=== PATIENT | female | born 1955 | race Caucasian/White ===

== ENCOUNTER 2018-01-21 21:00 | Emergency (ER) | payer OTHER ==
--- OUTSIDE RECORDS SUMMARY | 2018-01-21 21:02 | XMS REPORT | Continuity of Care Document ---
:1955 Author Organization Interface Problems Problem Status Onset Classification Date Comments Source Date Reported Polyneuropathy Active Problem 01/14/2018 [facility] Obstructive sleep Active Problem 01/14/2018 [facility] apnea (pediatric) [facility] Dependence on Active Problem 01/14/2018 [facility] other enabling [facility] Group machines and devices Chronic fatigue Active Diagnosis 01/14/2018 [facility] Anxiety Active Problem 01/14/2018 [facility] Restless leg Active Problem 01/14/2018 [facility] syndrome [facility] Group Irritable bowel Active Problem 01/14/2018 [facility] syndrome, [facility] unspecified type GERD without Active Diagnosis 01/14/2018 [facility] esophagitis [facility] Varicose vein of Active Diagnosis 10/13/2017 [facility] leg [facility] Skin lesion of Active Diagnosis 10/13[facility]2017 [facility] Closed fracture Active Diagnosis 11/30/2017 [facility] of right hand [facility] with routine healing, subsequent encounter Influenza A Active Diagnosis 10/30/2017 [facility] Herpes labialis Active Diagnosis 10/30/2017 [facility] Status post Active Diagnosis 01/14/2018 [facility] surgery [facility] Medications Medication Details Route Status Patient Ordering Order Source Instructions Provider Date Sertaline HCL 1 tab(s) orally Active 100mg orally LEONARD 12/24/ [facility] Daily 2018 [facility] dexlansoprazole 1 cap(s) orally Active 30 mg orally LEONARD 07/05/ [facility] once a day 2017 [facility] Group baclofen 1 tab(s) orally Active 10 mg orally 3 LEONARD 06/10/ [facility] times a day 2017 [facility] Group valacyclovir 1 tab(s) orally Active 1 g orally LEONARD 04/04/ [facility] every 12 hours 2016 [facility] Group Requip 4 tab(s) orally Active 0.25 mg orally LEONARD 03/29/ [facility] Once at night 2016 [facility] Group buspirone 1 tab(s) orally Active 10 mg orally LEONARD 03/29/ [facility] one time at 2017 [facility] Group night Zyrtec 1 tab(s) orally Active 10 mg orally LEONARD [facility] once a day [facility] Group cyclobenzaprine 1 tab(s) orally Active 5 mg orally LEONARD [facility] prn [facility] Group ondansetron 1 tab(s) orally Active 4 mg orally LEONARD [facility] every 8 hours [facility] Group Lyrica 1 cap(s) orally Active 100 mg orally LEONARD [facility] 2 times a day [facility] Group lubiprostone 1 cap(s) orally Active 8 mcg orally 2 LEONARD [facility] times a day [facility] Group diclofenac 1 martina applied Active 3% applied LEONARD [facility] topical topically topically prn Med Group ropinirole 1 tab(s) orally Active 0.25 mg orally LEONARD [facility] 3 times a day [facility] Group pantoprazole 1 tab(s) orally Active 40 mg orally LEONARD [facility] once a day [facility] Group Ventolin HFA 2 puff(s) inhaled Active 90 mcg/inh LEONARD [facility] inhaled 4 [facility] Group times a day fluticasone 1 puff(s) inhaled Active 50 mcg inhaled LEONARD [facility] 2 times a day [facility] Group pregabalin 1 cap(s) orally Active 100 mg orally LEONARD [facility] 2 times a day [facility] Group Tamiflu 1 cap(s) orally Active 75 mg orally 2 LEONARD [facility] times a day [facility] Group Glaxosmithkline as po Active 0.25mg po 4 LEONARD [facility] directed tabs at night Med Group Bromfed DM 5 mL orally Active 2 mg-10 mg-30 LEONARD [facility] mg/5 mL orally Med Group 4 times a day baclofen 1 tab(s) orally Active 10 mg orally 3 LEONARD [facility] times a day [facility] Group rabeprazole 1 tab(s) orally Active 20 mg orally LEONARD [facility] once a day [facility] Group Allergies, Adverse Reactions, Alerts Substance Category Reaction Severity Reaction Status Date Comments Source type Reported tizanidine Adverse Info Not Adverse Active [facility] Reaction Available Reaction 8 [facility] Group midazolam Adverse hives Adverse Active [facility] Reaction Reaction 8 [facility] Group sulfa Adverse rash Adverse Active [facility] Reaction Reaction 8 [facility] Group penicillin Adverse anaphylaxis Adverse Active [facility] Reaction Reaction 8 [facility] Group Immunizations Immunization Date Given Site Status Last Updated Comments Source Results Order Results Value Reference Date Interpretation Comments Source Name Range Vital Signs Vital Sign Value Date Comments Source Temperature Oral (F) 97.3 F 11/07/2017 [facility] Weight 179 11/07/2017 [facility] Height 67 11/07/2017 [facility] Respitory Rate 16 11/07/2017 [facility] Diastolic (mm Hg) 80 11/07/2017 [facility] Systolic (mm Hg) 126 11/07/2017 [facility] Temperature Oral (F) 97.7 F 08/17/2017 [facility] Weight 192.4 08/17/2017 [facility] Height 67 08/17/2017 [facility] Respitory Rate 16 08/17/2017 [facility] Diastolic (mm Hg) 80 08/17/2017 [facility] Systolic (mm Hg) 128 08/17/2017 [facility] Temperature Oral (F) 97.0 F 07/05/2017 [facility] Weight 194 07/05/2017 [facility] Height 67 07/05/2017 [facility] Respitory Rate 16 07/05/2017 [facility] Diastolic (mm Hg) 78 07/05/2017 [facility] Systolic (mm Hg) 124 07/05/2017 [facility] Temperature Oral (F) 97.8 F 04/04/2017 [facility] Weight 200.3 04/04/2017 [facility] Height 67 04/04/2017 [facility] Respitory Rate 16 04/04/2017 [facility] Diastolic (mm Hg) 76 04/04/2017 [facility] Systolic (mm Hg) 122 04/04/2017 [facility] Encounters Location Location Encounter Encounter Reason Attending ADM DC Status Source Details Type Number For Provider Date Date Visit Procedures Procedure Code Date Perfomer Comments Source
--- OUTSIDE RECORDS SUMMARY | 2018-01-21 21:03 | XMS REPORT ---
:1955 Author Organization eClinicalWorks Care Team Providers Name Role Phone WALLACE LEONARD Provider Role Unavailable Allergies, Adverse Reactions, Alerts Substance Reaction Event Type tizanidine Info Not Available Drug Allergy midazolam hives Drug Allergy sulfa rash Non Drug Allergy penicillin anaphylaxis Non Drug Allergy Problems Problem Type Condition Code Onset Dates Condition Status Assessment Influenza A J10.1 Active Assessment Herpes labialis B00.1 Active Problem Dependence on other enabling Z99.89 Active machines and devices Problem Irritable bowel syndrome, K58.9 Active unspecified type Problem Obstructive sleep apnea (adult) G47.33 Active (pediatric) Problem Restless leg syndrome G25.81 Active Problem Polyneuropathy G62.9 Active Problem GERD without esophagitis K21.9 Active Problem Anxiety F41.9 Active Medications Medication Code Code Instructions Start End Status Dosage System Date Date diclofenac topical [facility] 44185521095 3% applied Active 1 martina topically 2 times a day ropinirole [facility] 88137167508 0.25 mg orally Active 1 tab(s) 3 times a day lubiprostone [facility] 63149562095 8 mcg orally 2 Active 1 cap(s) times a day Zyrtec [facility] 57551461491 10 mg orally Active 1 tab(s) once a day pantoprazole [facility] 23075242008 40 mg orally Active 1 tab(s) once a day pregabalin [facility] 72368433483 100 mg orally 2 Active 1 cap(s) times a day Tamiflu [place] 66405884630 75 mg orally 2 Active 1 cap(s) times a day Glaxosmithkline [place] 0 0.25mg po 4 Active as tabs at night directed fluticasone [facility] 22662708223 50 mcg inhaled Active 1 puff(s) 2 times a day Bromfed DM ND 25688817317 2 mg-10 mg-30 Active 5 mL mg/5 mL orally 4 times a day Requip ND 21732044796 0.25 mg orally Dec 14, Active 4 tab(s) Once at night 2016 ondansetron [facility] 14440815534 4 mg orally Active 1 tab(s) every 8 hours cyclobenzaprine [facility] 52585607228 5 mg orally 3 Active 1 tab(s) times a day baclofen [facility] 99213922140 10 mg orally 3 Active 1 tab(s) times a day buspirone [facility] 15041219510 10 mg orally Mar 29, Active 1 tab(s) one time at 2016 night valacyclovir [facility] 64615321392 1 g orally Apr 04, Active 1 tab(s) every 12 hours 2016 Lyrica [facility] 54108318247 100 mg orally 2 Active 1 cap(s) times a day Ventolin HFA [facility] 35468852279 90 mcg/inh Active 2 puff(s) inhaled 4 times a day Sertaline HCL [facility] 75704865948 100mg orally Sept Active 1 tab(s) Daily 2017 Vital Signs Date/Time: Apr 04, 2017 Temperature 97.8 F Weight 200.3 lbs Height 67 in Respiratory Rate 16 /min Pulse 78 /min Blood Pressure Diastolic 76 mm Hg Blood Pressure Systolic 122 mm Hg BMI 31.37 Index Oximetry 98 % Results No Known Results Summary Purpose eClinicalWorks Submission
--- OUTSIDE RECORDS SUMMARY | 2018-01-21 21:03 | XMS REPORT ---
:1955 Author Organization eClinicalWorks Care Team Providers Name Role Phone JENNIFER LOPEZ Provider Role Unavailable Allergies, Adverse Reactions, Alerts Substance Reaction Event Type tizanidine Info Not Available Drug Allergy midazolam hives Drug Allergy sulfa rash Non Drug Allergy penicillin anaphylaxis Non Drug Allergy Problems Problem Type Condition Code Onset Dates Condition Status Problem Polyneuropathy G62.9 Active Assessment Closed fracture of right hand with S62.91XD Active routine healing, subsequent encounter Problem Obstructive sleep apnea (adult) G47.33 Active (pediatric) Problem Dependence on other enabling Z99.89 Active machines and devices Problem Chronic fatigue R53.82 Active Problem Anxiety F41.9 Active Problem Restless leg syndrome G25.81 Active Problem Irritable bowel syndrome, K58.9 Active unspecified type Problem GERD without esophagitis K21.9 Active Medications Medication Code Code Instructions Start End Status Dosage System Date Date Requip [facility] 06208078587 0.25 mg orally Mar 29, Active 4 tab(s) Once at night 2016 lubiprostone [facility] 48063346604 8 mcg orally 2 Active 1 cap(s) times a day Sertaline HCL [facility] 16695279697 100mg orally Sept Active 1 tab(s) Daily 2017 ondansetron [facility] 26113935279 4 mg orally Active 1 tab(s) every 8 hours cyclobenzaprine [facility] 10069988250 5 mg orally prn Active 1 tab(s) Lyrica [facility] 94629488329 100 mg orally 2 Active 1 cap(s) times a day Ventolin HFA ND 30145472613 90 mcg/inh Active 2 puff(s) inhaled 4 times a day fluticasone ND 71300963406 50 mcg inhaled Active 1 puff(s) 2 times a day Zyrtec [facility] 09978952369 10 mg orally Active 1 tab(s) once a day dexlansoprazole [facility] 60753066727 30 mg orally March Active 1 cap(s) once a day 2017 diclofenac topical [facility] 94825792384 3% applied Active 1 martina topically prn ropinirole [facility] 50664911234 0.25 mg orally Active 1 tab(s) 3 times a day Vital Signs Date/Time: August 17, 2017 Temperature 97.7 F Weight 192.4 lbs Height 67 in Respiratory Rate 16 /min Pulse 73 /min Blood Pressure Diastolic 80 mm Hg Blood Pressure Systolic 128 mm Hg BMI 30.13 Index Oximetry 97 % Results No Known Results Summary Purpose eClinicalWorks Submission
--- OUTSIDE RECORDS SUMMARY | 2018-01-21 21:03 | XMS REPORT ---
:1955 Author Organization eClinicalWorks Care Team Providers Name Role Phone LEONARD, WALLACE Provider Role Unavailable Allergies, Adverse Reactions, Alerts Substance Reaction Event Type tizanidine Info Not Available Drug Allergy midazolam hives Drug Allergy penicillin anaphylaxis Non Drug Allergy sulfa rash Non Drug Allergy Problems Problem Type Condition Code Onset Dates Condition Status Assessment GERD without esophagitis K21.9 Active Problem Polyneuropathy G62.9 Active Assessment Chronic fatigue R53.82 Active Assessment Status post surgery Z98.890 Active Problem Obstructive sleep apnea (adult) G47.33 Active (pediatric) Problem Dependence on other enabling Z99.89 Active machines and devices Problem Chronic fatigue R53.82 Active Problem Anxiety F41.9 Active Problem Restless leg syndrome G25.81 Active Problem Irritable bowel syndrome, K58.9 Active unspecified type Problem GERD without esophagitis K21.9 Active Medications Medication Code Code Instructions Start End Status Dosage System Date Date Zyrtec [facility] 07148212617 10 mg orally Active 1 tab(s) once a day Requip ND 89760565496 0.25 mg orally Mar 29, Active 4 tab(s) Once at night 2016 ropinirole [facility] 73172742464 0.25 mg orally Active 1 tab(s) 3 times a day lubiprostone [facility] 59786877959 8 mcg orally 2 Active 1 cap(s) times a day dexlansoprazole [facility] 25576038064 30 mg orally June Active 1 cap(s) once a day 2017 Sertaline HCL ND 14119717247 100mg orally Sept Active 1 tab(s) Daily 2017 ondansetron [facility] 85518418432 4 mg orally Active 1 tab(s) every 8 hours diclofenac topical [facility] 38588448320 3% applied Active 1 martina topically prn cyclobenzaprine [facility] 90905763945 5 mg orally prn Active 1 tab(s) Ventolin HFA [facility] 30965720717 90 mcg/inh Active 2 puff(s) inhaled 4 times a day fluticasone [facility] 17344788043 50 mcg inhaled Active 1 puff(s) 2 times a day rabeprazole [facility] 43144068839 20 mg orally Active 1 tab(s) once a day Lyrica [facility] 26051242185 100 mg orally 2 Active 1 cap(s) times a day Vital Signs Date/Time: November 07, 2017 Temperature 97.3 F Weight 179 lbs Height 67 in Respiratory Rate 16 /min Pulse 82 /min Blood Pressure Diastolic 80 mm Hg Blood Pressure Systolic 126 mm Hg BMI 28.03 Index Oximetry 98 % Results No Known Results Summary Purpose eClinicalWorks Submission
--- OUTSIDE RECORDS SUMMARY | 2018-01-21 21:03 | XMS REPORT ---
:1955 Author [facility] Address [address] [place] [address] Care Team Providers Name Role Phone MIGUELITO SHIN Unavailable Unavailable Problems This patient has no known problems. Allergies, Adverse Reactions, Alerts This patient has no known allergies or adverse reactions. Medications This patient has no known medications. Results Test Description Test Time Test Comments Text Results Atomic Results Result Comments CT ABDOMEN/PELVIS 2017-07-14 NPO 4 hours. Procedures: CT ABDOMEN/PELVIS W/ O W/O CONTRAST 16:53:39 Do not CONTRASTExam Date: 07/14/2017 3:01 withhold meds PMOrdering Physician: MIGUELITO SHETTYlinical Indication: epigastric pain - post gastric bypass - use gastric bypassprotocolComparison: None available.TECHNIQUE: Spiral multislice scanning was obtained from the lung bases throughthe bony pelvis with enteric contrast only. 2-D reconstructions were obtainedaccording to our usual protocol.This exam was performed according to the our departmental dose-optimizationprogram which includes automated exposure control, adjustment of the mA and/orkV according to patient size and/or use of iterative reconstruction techniques.Findings:THORAX:Lung bases: No significant abnormality of the lung bases.Heart: No significant abnormality of the visualized cardiac or mediastinalstructures.UPPER ABDOMEN:Liver: Normal.Gallbladder: Limited evaluation is without gross abnormality.Pancreas: Normal.Spleen: Normal.Adrenals: 2.4 cm lipid rich left adrenal adenoma with an attenuation of -10Hounsfield units. This is consistent with a benign finding. The right adrenalgland is within normal limits.URINARY:Kidneys: The kidneys have a normal unenhanced CT appearance. Small simple renalcyst is present within the right lower pleural. No hydronephrosis ornephrolithiasis.Ureters: The ureters are of normal course and caliber.Urinary bladder: No significant abnormality of the urinary bladder.REPRODUCTIVE:Organs: Postsurgical changes status post hysterectomy. No significant freefluid in the pelvis.Free fluid: None.Incidental pelvic phleboliths are noted.GASTROINTESTINAL:Large bowel: Diverticulosis without CT evidence of diverticulitis.Appendix: The appendix is not clearly demonstrated on this exam.Small bowel: Enteric contrast opacifies normal caliber loops of small bowel. Noevidence of obstruction.Stomach: Postsurgical change status post bariatric surgery with gastric bypass.Enteric contrast traverses from the distal esophagus and proximal stomach pouchinto the small bowel without difficulty. No leakage of enteric contrast isdemonstrated within the upper abdomen or within the excluded distal gastriclumen.Mesentery: Normal.RETROPERITONEUM:Aorta: Few small atherosclerotic calcific plaque of the aorta withoutaneurysmal dilatation.Lymphadenopathy: No retroperitoneal lymphadenopathy.Masses: None.OSSEOUS: Degenerative changes of the spine; otherwise, no significant osseouslesions.OTHER: Nerve stimulator pulse generator within the subcutaneous soft tissues ofthe right lower back with lead termination overlying the mid to lower thorax.IMPRESSION:1. Postsurgical change status post bariatric surgery with gastric bypass.Enteric contrast traverses from the distal esophagus and proximal stomach pouchinto the small bowel without difficulty. No leakage of enteric contrast isdemonstrated within the upper abdomen or within the excluded distal gastriclumen. Normal caliber small bowel. No obstruction.2. Chronic findings, as above.This final report was electronically signed by Dr Dima Olsen MD07/14/2017 4:47 PMDictated By: DIMA CARREONDate: 07/14/2017 16:53 URINALYSIS WITHOUT MICROSCOPIC 2017-07-14 16:35:00 Test Item Value Reference Range Comments Color (test code=UCOLR) Yellow Lt. Yellow Clarity (test code=UCLAR) Clear Glucose (test code=UGLUC) Negative Negative Bilirubin (test code=UBILI) Negative Negative Ketones (test code=UKET) Trace Negative Specific Orcas (test code=USPGR) 1.020 1.005-1.030 Blood (test code=UBLD) Negative Negative PH (test code=UPH) 7.0 4.5-8.0 Protein (test code=UPROT) Negative Negative Urobilinogen (test code=U UROB) 1.0 E.U./dL >0.2 Nitrite (test code=UNITR) Negative Negative Leukocyte Esterase (test code=ULEUK) Trace Negative LIPASE, [id number] 16:16:00 Test Item Value Reference Range Comments Lipase (test code=LIPA) 355 U/L 8-223 [id number] 16:16:00 Test Item Value Reference Range Comments Glucose (test code=GLU) 102 mg/dl 75-110 BUN (test code=BUN) 22.0 mg/dl 6.0-17.0 Creatinine (test 0.8 mg/dl 0.4-1.2 code=CREA) Sodium (test code=NA) 140 mmol/l 137-145 Potassium (test code=K) 3.8 mmol/l 3.5-5.0 Chloride (test code=CL) 102 mmol/l 98-107 CO2 (test code=CO2) 30 mmol/l 22-30 Calcium (test code=CALC) 9.6 mg/dl 8.4-10.2 T Protein (test code=TP) 7.4 gm/dl 5.1-8.7 Albumin (test code=ALB) 4.2 gm/dl 3.5-4.6 A/G Ratio (test 1.3 % 1.1-2.2 code=AGRAT) AST (SGOT) (test 29 U/L 11-36 code=AST) ALT (SGPT) (test 33 U/L 11-40 code=ALT) Alkaline Phos (test 71 U/L 47-114 code=ALKP) Total Bilirubin (test 0.4 mg/dl 0.2-1.2 code=TBIL) Globulin (test 3.2 gm/dl 2.3-3.5 code=GLOBU) Calcium, Corrected (test 9.4 mg/dl 8.4-10.2 Various formulas exist for code=CALCCORR) corrected serum calcium results, each yielding different values. This corrected result was based on the formula: Corrected Calcium=SerumCalcium + [0.8 * ( 4 - SerumAlbumin)] EGFR if >60 (test code=EGFRAA) mL/min/1.73m\S\2 EGFR if Non- >60 Estimated Glomerular Indian (test mL/min/1.73m\S\2 Filtration Rate (eGFR) code=EGFRNA) Reference Intervals Decision Points for 18 years and older and average body mass: >=60 Does not exclude kidney disease. 30 - 59 Suggests moderate chronic kidney disease and indicates the need for further investigation including assessment of proteinuria and cardiovascular factors. < 30 Usually indicates a need for referral for assessment and management of chronic kidney failure. Anion Gap (test 8 code=GAP) CBC WITH AUTO [id number] 15:36:00 Test Item Value Reference Range Comments WBC (test code=WBC) 4.83 10\S\3/ul 4.80-10.80 RBC (test code=RBC) 4.28 10\S\6/ul 4.20-5.40 Hemoglobin (test code=HGB) 12.2 gm/dl 12.0-14.0 Hematocrit (test code=HCT) 37.7 % 37.0-47.0 MCV (test code=MCV) 88.1 fL 81.0-99.0 MCH (test code=MCH) 28.5 pg 27.0-31.0 MCHC (test code=MCHC) 32.4 gm/dl 33.0-37.0 RDW (test code=RDWVC) 13.7 % 11.5-14.5 Platelet (test code=PLT) 298 10\S\3/ul 130-400 MPV (test code=MPV) 9.8 fL 7.4-10.4 NE% (test code=NE) 39.6 % 42.0-75.0 LY% (test code=LY) 45.1 % 13.0-42.0 MO% (test code=MO) 8.3 % 4.0-14.0 EO% (test code=EO) 5.4 % 1.0-3.0 BA% (test code=BA) 1.4 % 1.0-3.0 IG% (test code=IG%) 0.2 % 0.0-0.4 NRBC, Auto (test code=NRBC_AUTO) 0 /100WBC 0-2
--- OUTSIDE RECORDS SUMMARY | 2018-01-21 21:03 | XMS REPORT ---
:1955 Author Organization eClinicalWorks Care Team Providers Name Role Phone WALLACE LEONARD Provider Role Unavailable Allergies No Known Allergies Problems Problem Type Condition Code Onset Dates Condition Status Problem GERD without esophagitis K21.9 Active Problem Polyneuropathy G62.9 Active Problem Anxiety F41.9 Active Problem Restless leg syndrome G25.81 Active Medications Medication Code System Code Instructions Start Date End Date [facility] D[id number] mg orally once Active 1 tab(s) a day Results No Known Results Summary Purpose eClinicalWorks Submission
--- OUTSIDE RECORDS SUMMARY | 2018-01-21 21:03 | XMS REPORT ---
:1955 Author Organization eClinicalWorks Care Team Providers Name Role Phone WALLACE LEONARD Provider Role Unavailable Allergies No Known Allergies Problems Problem Type Condition Code Onset Dates Condition Status Problem Polyneuropathy G62.9 Active Problem Obstructive sleep apnea (adult) G47.33 Active (pediatric) Problem Dependence on other enabling Z99.89 Active machines and devices Problem Chronic fatigue R53.82 Active Problem Anxiety F41.9 Active Problem Restless leg syndrome G25.81 Active Problem Irritable bowel syndrome, K58.9 Active unspecified type Problem GERD without esophagitis K21.9 Active Medications No Known Medications Results No Known Results Summary Purpose eClinicalJascha Submission
--- OUTSIDE RECORDS SUMMARY | 2018-01-21 21:03 | XMS REPORT ---
:1955 Author Organization [employer] Care Team Providers Name Role Phone WALLACE LEONARD Provider Role Unavailable Allergies, Adverse Reactions, Alerts Substance Reaction Event Type tizanidine Info Not Available Drug Allergy midazolam hives Drug Allergy sulfa rash Non Drug Allergy penicillin anaphylaxis Non Drug Allergy Problems Problem Type Condition Code Onset Dates Condition Status Assessment Varicose vein of leg I83.90 Active Assessment GERD without esophagitis K21.9 Active Assessment Skin lesion of scalp L98.9 Active Problem Dependence on other enabling Z99.89 Active machines and devices Problem Irritable bowel syndrome, K58.9 Active unspecified type Problem Obstructive sleep apnea (adult) G47.33 Active (pediatric) Problem Restless leg syndrome G25.81 Active Problem Polyneuropathy G62.9 Active Problem GERD without esophagitis K21.9 Active Problem Anxiety F41.9 Active Medications Medication Code Code Instructions Start End Status Dosage System Date Date valacyclovir [facility] 78693808321 1 g orally Apr 04Feb Active 1 tab(s) every 12 hours 2016 Sertaline HCL [facility] 69757699565 100mg orally Sept Active 1 tab(s) Daily 2017 Requip [facility] 87170432437 0.25 mg orally Mar 29, Active 4 tab(s) Once at night 2016 cyclobenzaprine [facility] 20932885369 5 mg orally prn Active 1 tab(s) ondansetron [facility] 00686976133 4 mg orally Active 1 tab(s) every 8 hours dexlansoprazole [facility] 59627066786 30 mg orally June Active 1 cap(s) once a day 2017 Lyrica [facility] 19658880201 100 mg orally 2 Active 1 cap(s) times a day lubiprostone [facility] 67805014990 8 mcg orally 2 Active 1 cap(s) times a day diclofenac topical [facility] 31038602103 3% applied Active 1 martina topically prn ropinirole [facility] 09919272227 0.25 mg orally Active 1 tab(s) 3 times a day pantoprazole [facility] 57018821152 40 mg orally Inactive 1 tab(s) once a day baclofen [facility] 72501500599 10 mg orally 3 Feb Active 1 tab(s) times a day 2017 Ventolin HFA [facility] 16313708111 90 mcg/inh Active 2 inhaled 4 times puff(s) a day fluticasone [facility] 56713166117 50 mcg inhaled Active 1 2 times a day puff(s) buspirone [facility] 71586107580 10 mg orally Mar 29Feb Active 1 tab(s) one time at 2016, night 2016 Zyrtec [facility] 32345142654 10 mg orally Active 1 tab(s) once a day Vital Signs Date/Time: July 05, 2017 Temperature 97.0 F Weight 194 lbs Height 67 in Respiratory Rate 16 /min Pulse 70 /min Blood Pressure Diastolic 78 mm Hg Blood Pressure Systolic 124 mm Hg BMI 30.38 Index Oximetry 98 % Results No Known Results Summary Purpose [employer] Submission
--- OUTSIDE RECORDS SUMMARY | 2018-01-21 21:04 | XMS REPORT | Continuity of Care Document ---
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 742746505 SNOMED-CT Gastroesophageal reflux 2000 Active disease 266663533 SNOMED-CT Familial 2000 Active hypercholesterolemia 43046093 SNOMED-CT Diabetes mellitus type 2 2000 Active 64973430 SNOMED-CT Chronic pansinusitis 2000 Active CHRONIC BACK PAIN Unknown Active 00623444 SNOMED-CT Irritable colon Unknown Active 653517108 SNOMED-CT Asthma Unknown Active 86430840 SNOMED-CT Fibromyositis Unknown Active 59978665 SNOMED-CT Depressive disorder Unknown Active 87842478 SNOMED-CT Migraine Unknown Active 016741546 SNOMED-CT Neuropathy Unknown Active Medications RxNorm Medication Dose Route Instructions Indications Start End Status Date Date amitiza Active 2418 Cholecalciferol 2000 unit Oral orally 3 Active times per day (administer with meals) 2065462 olopatadine 2 1 drop Ophthalmic into the Active MG/ML eye(s) every Ophthalmic day at Solution bedtime (both eyes) 502087 pregabalin 100 100 Oral orally 3 Active MG Oral Capsule milligram times per day 3 tabs at hs protonix Active requip Active 982198 Simvastatin 20 20 Oral orally every Active MG Oral Tablet milligram evening 313278 Sucralfate 100 1 gram Oral orally every Active MG/ML Oral 6 hours (10 Suspension day) tylenol 3 Active zofran Active zoloft Active Cetirizine 10 Oral orally every No milligram day Longer Active 136113 Cyclobenzaprine 5 Oral orally 3 No hydrochloride 5 milligram times per day Longer MG Oral Tablet Active 969524 Metformin 500 Oral orally 2 No hydrochloride milligram times per day Longer 500 MG Oral Active Tablet 620798 milnacipran 62.5 Oral orally 2 No milligram times per day Longer Active 20010520 montelukast 10 10 Oral orally every No MG Oral Tablet milligram day Longer Active 19790419 Naproxen 500 MG 500 Oral orally every No Oral Tablet milligram 12 hours Longer (administer Active with food or milk) 757434 Rabeprazole 20 Oral orally every No sodium 20 MG milligram day Longer Delayed Release Active Oral Tablet 85600 Trazodone 25 Oral orally every No milligram day at Longer bedtime Active Allergies Code Code Allergy Substance Type Reaction Severity Start End Status System Date Date 01957 RXNorm Sulfamethoxazole Drug Unknown Active allergy 92713 RXNorm Versed Drug Unknown Active allergy 876161 RXNorm Versed Drug Unknown Active allergy 7980 RXNorm penicillin G Drug Unknown Active allergy Results Laboratory Results Order: URINALYSIS W/O MICROSCOPIC EXAM LOINC Test Result Flag Range Unit Date 5777-09 Yellow A Lt. Yellow 07/14/2017 1Color:Type: 16:17 Pt:Urine:Nom 5767-9 Clear 07/14/2017 1Appearance: 16:17 Aper:Pt:Urin e:Nom 2349-9 Negative Negative 07/14/2017 1Glucose:ACn 16:17 c:Pt:Urine:O rd 5770-3 Negative Negative 07/14/2017 1Bilirubin:A 16:17 Cnc:Pt:Urine :Ord:Test strip 2514-8 Trace A Negative 07/14/2017 1Ketones:ACn 16:17 c:Pt:Urine:O rd:Test strip 5811-5 1.020 A 1.005-1.030 07/14/2017 1Specific 16:17 gravity:Rden :Pt:Urine:Qn :Test strip 5794-3 Negative Negative 07/14/2017 1Hemoglobin: 16:17 ACnc:Pt:Urin e:Ord:Test strip 5803-2 7.0 A 4.5-8.0 07/14/2017 1pH:LsCnc:Pt 16:17 :Urine:Qn:Te st strip 78500-3 Negative Negative 07/14/2017 1Protein:ACn 16:17 c:Pt:Urine:O rd:Test strip 5818-0 1.0 E.U./dL A 0.2 07/14/2017 1Urobilinoge 16:17 n:ACnc:Pt:Ur ine:Ord:Test strip 5802-4 Negative Negative 07/14/2017 1Nitrite:ACn 16:17 c:Pt:Urine:O rd:Test strip 5799-2 Trace A Negative 07/14/2017 1Leukocyte 16:17 esterase:ACn c:Pt:Urine:O rd:Test strip Performing Lab Footnotes:1[facility] - [id number] - [address] [place] [address] [place]- MD: DIRECTOR JAMAR GIVENS _ Order: CBC PLATELET AUTO DIFF LOINC Test Result Flag Range Unit Date 73126-3 4.83 4.80-10.80 10^3/ul 07/14/2017 1Leukocytes^^correc 15:27 raymond for nucleated erythrocytes:NCnc:P t:Bld:Qn:Automated count 789-8 4.28 4.20-5.40 10^6/ul 07/14/2017 1Erythrocytes:NCnc: 15:27 Pt:Bld:Qn:Automated count 718-7 12.2 12.0-14.0 gm/dl 07/14/2017 1Hemoglobin:MCnc:Pt 15:27 :Bld:Qn 4544-3 37.7 37.0-47.0 % 07/14/2017 1Hematocrit:VFr:Pt: 15:27 Bld:Qn:Automated count 787-2 88.1 81.0-99.0 fL 07/14/2017 1Erythrocyte mean 15:27 corpuscular volume:EntVol:Pt:RB C:Qn:Automated count 785-6 28.5 27.0-31.0 pg 07/14/2017 1Erythrocyte mean 15:27 corpuscular hemoglobin:EntMass: Pt:RBC:Qn:Automated count 786-4 32.4 L 33.0-37.0 gm/dl 07/14/2017 1Erythrocyte mean 15:27 corpuscular hemoglobin concentration:MCnc: Pt:RBC:Qn:Automated count 788-0 13.7 11.5-14.5 % 07/14/2017 1Erythrocyte 15:27 distribution width:Ratio:Pt:RBC: Qn:Automated count 777-3 298 130-400 10^3/ul 07/14/2017 1Platelets:NCnc:Pt: 15:27 Bld:Qn:Automated count 77963-0 1Platelet 9.8 A 7.4-10.4 fL 07/14/2017 mean 15:27 volume:EntVol:Pt:Bl d:Qn:Automated count 770-8 39.6 L 42.0-75.0 % 07/14/2017 1Neutrophils/100 15:27 leukocytes:NFr:Pt:B ld:Qn:Automated count 736-9 45.1 H 13.0-42.0 % 07/14/2017 1Lymphocytes/100 15:27 leukocytes:NFr:Pt:B ld:Qn:Automated count 5905-5 8.3 4.0-14.0 % 07/14/2017 1Monocytes/100 15:27 leukocytes:NFr:Pt:B ld:Qn:Automated count 713-8 5.4 H 1.0-3.0 % 07/14/2017 1Eosinophils/100 15:27 leukocytes:NFr:Pt:B ld:Qn:Automated count 706-2 1.4 1.0-3.0 % 07/14/2017 1Basophils/100 15:27 leukocytes:NFr:Pt:B ld:Qn:Automated count 1IG% 0.2 0.0-0.4 % 07/14/2017 15:27 1NRBC, 0 0-2 /100WBC 07/14/2017 Auto 15:27 Performing Lab Footnotes:[address] [place] [address] - [id number] - [address] [place] [address], [place] [id number] [place]- MD: DIRECTOR JAMAR GIVENS _ Order: CMP COMPREHENSIVE METABOLIC PANEL LOINC Test Result Flag Range Unit Date 102 75-110 mg/dl 07/14/2017 1Glucose 15:27 1BUN 22 H 6.0-17.0 mg/dl 07/14/2017 15:27 0.8 0.4-1.2 mg/dl 07/14/2017 1Creatinine 15:27 140 137-145 mmol/l 07/14/2017 1Sodium 15:27 3.8 3.5-5.0 mmol/l 07/14/2017 1Potassium 15:27 102 98-107 mmol/l 07/14/2017 1Chloride 15:27 1CO2 30 22-30 mmol/l 07/14/2017 15:27 9.6 8.4-10.2 mg/dl 07/14/2017 1Calcium 15:27 1T 7.4 5.1-8.7 gm/dl 07/14/2017 Protein 15:27 4.2 3.5-4.6 gm/dl 07/14/2017 1Albumin 15:27 1A/G 1.3 1.1-2.2 % 07/14/2017 Ratio 15:27 1AST 29 11-36 U/L 07/14/2017 (SGOT) 15:27 1ALT 33 11-40 U/L 07/14/2017 (SGPT) 15:27 71 47-114 U/L 07/14/2017 1Alkaline Phos 15:27 1Total 0.4 0.2-1.2 mg/dl 07/14/2017 Bilirubin 15:27 3.2 2.3-3.5 gm/dl 07/14/2017 1Globulin 15:27 9.4 8.4-10.2 mg/dl 07/14/2017 1Calcium, 15:27 Corrected Note: Various formulas exist for corrected serum calcium results, each yielding different values. This corrected result was based on the formula: Corrected Calcium=SerumCalcium + [0.8 * ( 4 - SerumAlbumin)] 1EGFR >60 mL/min/1.73m^2 07/14/2017 15:27 if 1EGFR >60 mL/min/1.73m^2 07/14/2017 15:27 if Non- Note: Estimated Glomerular Filtration Rate (eGFR) Reference Intervals Decision Points for 18 years and older and average body mass: >=60 Does not exclude kidney disease. 30 - 59 Suggests moderate chronic kidney disease and indicates the need for further investigation including assessment of proteinuria and cardiovascular factors. < 30 Usually indicates a need for referral for assessment and management of chronic kidney failure. 1Anion 8 07/14/2017 15:27 Gap Performing Lab Footnotes:1[facility] [id number] [place] [address] SINAN MORIN: DIRECTOR JAMAR GIVENS _ Order: LIPASE SERUM LOINC Test Result Flag Range Unit Date 355 H 8-223 U/L 07/14/2017 1Lipase 15:27 Performing Lab Footnotes:[address] [place] [address] [id number] - [address] [place] [address] SINAN MORIN: DIRECTOR JAMAR GIVENS _ Radiology Results Order: [id number] CT ABDOMEN/PELVIS W/O CONTRASTExam Completion Date:07/14/2017 15:01Procedures: CT ABDOMEN/PELVIS W/ O CONTRASTExam Date: 07/14/2017 3:01 PMOrdering Physician: MIGUELITO Mendozaical Indication: epigastric pain - post gastric bypass - use gastric bypassprotocolComparison: None available.TECHNIQUE: Spiral multislice scanning was obtained from the lung bases throughthe bony pelvis with enteric contrast only. 2-D reconstructions were obtainedaccording to our usual protocol.This exam was performed according to the our departmental dose- optimizationprogram which includes automated exposure control, adjustment of the mA and/orkV according to patient size and/or use of iterative reconstruction techniques.Findings: THORAX: Lung bases: No significant abnormality of the lung bases. Heart: No significant abnormality of the visualized cardiac or mediastinalstructures. UPPER ABDOMEN: Liver: Normal.Gallbladder: Limited evaluation is without gross abnormality.Pancreas: Normal.Spleen: Normal.Adrenals: 2.4 cm lipid rich left adrenal adenoma with an attenuationof -10Hounsfield units. This is consistent with a benign finding. The right adrenalgland is within normal limits.URINARY: Kidneys: The kidneys have a normal unenhanced CT appearance. Small simple renalcyst is present within the right lower pleural. No hydronephrosis ornephrolithiasis. Ureters: The ureters are of normal course and caliber. Urinary bladder: No significant abnormality of the urinary bladder. REPRODUCTIVE: Organs: Postsurgical changes status post hysterectomy. No significant freefluid in the pelvis. Free fluid: None.Incidental pelvic phleboliths are noted. GASTROINTESTINAL: Large bowel: Diverticulosis without CT evidence of diverticulitis. Appendix: The appendix is not clearly demonstrated on this exam. Small bowel: Enteric contrast opacifies normal caliber loops of small bowel. Noevidence of obstruction. Stomach: Postsurgical change status post bariatric surgery with gastric bypass. Enteric contrast traverses from the distal esophagus and proximal stomachpouchinto the small bowel without difficulty. No leakage of enteric contrast isdemonstrated within the upper abdomen or within the excluded distal gastriclumen.Mesentery: Normal.RETROPERITONEUM: Aorta: Few small atherosclerotic calcific plaque of the aorta withoutaneurysmal dilatation. Lymphadenopathy: No retroperitoneal lymphadenopathy.Masses: None.OSSEOUS: Degenerative changes of the spine; otherwise, no significant osseouslesions.OTHER: Nerve stimulator pulse generator within the subcutaneous soft tissues ofthe right lower back with lead termination overlying the mid to lower thorax.IMPRESSION: 1. Postsurgical change status post bariatric surgery with gastric bypass. Enteric contrast traverses from the distal esophagus and proximal stomach pouchinto the small bowel without difficulty. Noleakage of enteric contrast isdemonstrated within the upper abdomen or within the excluded distal gastriclumen. Normal caliber small bowel. No obstruction.2. Chronic findings, as above.This final report was electronically signed by Dr Dima Olsen MD07/14/2017 4:47 PMDictated By: DIMA CARREONDate: 07/14/2017 16:53 Vital Signs Vitals Value Date Body Temperature 98.5 F 07/14/2017 Respiratory Rate 16 07/14/2017 O2% BldC Oximetry 100 07/14/2017 BP Systolic 130 mmHg 07/14/2017 BP Diastolic 67 mmHg 07/14/2017 Height 68 in 07/14/2017 Weight Measured 195 lbs 07/14/2017 BSA (Body Surface Area) 2.54558 07/14/2017 BMI (Body Mass Index) 29.8 07/14/2017 Plan of Care No data in the system Procedures Code Code System Procedure Name Target Site Date of Procedure CT 07/14/2017 16:53 ABDOMEN/PELVIS W/O CONTRAST Encounters Date Code Diagnosis Status (ICD10) - K8590 ACUTE PANCREATITIS WO NECRS/INF Active UNS Immunizations No data in the system Functional Status No data in the system Hospital Discharge Instructions Discharge Instructions 2Discharge Diagnosispancreatitis/abd painImportant InformationConsult your physician or return to the Emergency Department immediately if worse, if not better as expected, or if any problems arise.Follow Up CareYesImportant InformationPlease understand that you have received care only on an emergency basis. If your condition does notimprove, you should call your personal physician for follow-up care. If you do not have a physician,you may call the referred physician listed.If you have questions about your care or these discharge instructions, you may call the Emergency Department. Please take your discharge paperwork with you to any follow-up appointments.Follow Up CarePatient To ScheduleFollow-Up With:Primary Care PhysicianActivity LevelAs tolerated, unrestrictedRest frequently.Dietclear liquids for 24 hoursOtherPatient TeachingPatient education providedPain ControlActivitiesDietary
[2018-01-21] MEDS ORDERED: MORPHINE 4 MG/ML SYR ONE (21:37)
[2018-01-21] MEDS ORDERED: ONDANSETRON 4 MG/2 ML VIAL ONE ×2 (21:37→22:36)
--- NOTE | 2018-01-21 22:19 | EDPHYS ---
Physician Documentation [facility] Name: Mary Goddard Age: 62 yrs Sex: Female : 1955 Arrival Date: 01/21/2018 Time: 21:05 Bed 19 Private MD: ED Physician Ashutosh Del Rosario HPI: 01/21 21:57 This 62 yrs old Female presents to ER via EMS with complaints of Shoulder lakshmi Pain. 21:57 The patient or guardian complains of decreased range of motion, pain. left shoulder, lakshmi left trapezius and left clavicle. Context: The problem was sustained outdoors. Onset: The symptoms/episode began/occurred just prior to arrival. Modifying factors: the symptoms are alleviated by remaining still, The symptoms are aggravated by movement. Associated signs and symptoms: The patient has no apparent associated signs or symptoms. Severity of symptoms: At their worst the symptoms were moderate, in the emergency department the symptoms are unchanged. Treatment prior to arrival includes: splinting the affected extremity. Historical: - Allergies: 21:18 Penicillins; ea 21:18 Sulfa (Sulfonamide Antibiotics); ea 21:18 Versed; ea 21:18 Tizanidine; ea - Home Meds: 21:18 Requip Oral [Active]; ea 21:43 Protonix Oral [Active]; Lyrica oral oral [Active]; Zoloft Oral [Active]; ea - PMHx: 21:43 Depression; ea - Immunization history:: Adult Immunizations up to date. - Social history:: Smoking status: Patient/guardian denies using tobacco. - Ebola Screening: : No symptoms or risks identified at this time. - Family history:: not pertinent. ROS: 21:57 Constitutional: Negative for fever, chills, and weight loss, Eyes: Negative for injury, lakshmi pain, redness, and discharge, ENT: Negative for injury, pain, and discharge, Neck: Negative for injury, pain, and swelling, Cardiovascular: Negative for chest pain, palpitations, and edema, Respiratory: Negative for shortness of breath, cough, wheezing, and pleuritic chest pain, Abdomen/GI: Negative for abdominal pain, nausea, vomiting, diarrhea, and constipation, Back: Negative for injury and pain, : Negative for injury, bleeding, discharge, and swelling, Skin: Negative for injury, rash, and discoloration, Neuro: Negative for headache, weakness, numbness, tingling, and seizure, Psych: Negative for depression, anxiety, suicide ideation, homicidal ideation, and hallucinations, Allergy/Immunology: Negative for hives, rash, and allergies, Endocrine: Negative for neck swelling, polydipsia, polyuria, polyphagia, and marked weight changes, Hematologic/Lymphatic: Negative for swollen nodes, abnormal bleeding, and unusual bruising. 21:57 MS/extremity: Positive for decreased range of motion, pain, swelling, tenderness, of the anterior aspect of left shoulder and posterior aspect of left shoulder. Exam: 21:57 Constitutional: This is a well developed, well nourished patient who is awake, alert, lakshmi and in no acute distress. Head/Face: Normocephalic, atraumatic. Eyes: Pupils equal round and reactive to light, extra-ocular motions intact. Lids and lashes normal. Conjunctiva and sclera are non-icteric and not injected. Cornea within normal limits. Periorbital areas with no swelling, redness, or edema. ENT: Nares patent. No nasal discharge, no septal abnormalities noted. Tympanic membranes are normal and external auditory canals are clear. Oropharynx with no redness, swelling, or masses, exudates, or evidence of obstruction, uvula midline. Mucous membranes moist. Neck: Trachea midline, no thyromegaly or masses palpated, and no cervical lymphadenopathy. Supple, full range of motion without nuchal rigidity, or vertebral point tenderness. No Meningismus. Chest/axilla: Normal chest wall appearance and motion. Nontender with no deformity. No lesions are appreciated. Cardiovascular: Regular rate and rhythm with a normal S1 and S2. No gallops, murmurs, or rubs. Normal PMI, no JVD. No pulse deficits. Respiratory: Lungs have equal breath sounds bilaterally, clear to auscultation and percussion. No rales, rhonchi or wheezes noted. No increased work of breathing, no retractions or nasal flaring. Abdomen/GI: Soft, non-tender, with normal bowel sounds. No distension or tympany. No guarding or rebound. No evidence of tenderness throughout. Back: No spinal tenderness. No costovertebral tenderness. Full range of motion. Female : Normal external genitalia. Skin: Warm, dry with normal turgor. Normal color with no rashes, no lesions, and no evidence of cellulitis. Neuro: Awake and alert, GCS 15, oriented to person, place, time, and situation. Cranial nerves II-XII grossly intact. Motor strength 5/5 in all extremities. Sensory grossly intact. Cerebellar exam normal. Normal gait. Psych: Awake, alert, with orientation to person, place and time. Behavior, mood, and affect are within normal limits. Vital Signs: 21:22 BP 129 / 91; Pulse 60; Resp 20; Temp 98(O); Pulse Ox 98% on R/A; Weight 81.65 kg; ea Height 5 ft. 7 in. (170.18 cm); Pain 10/10; 22:58 BP 130 / 62; Pulse 62; Resp 18; Pulse Ox 99% ; Pain 0/10; ea 21:22 Body Mass Index 28.19 (81.65 kg, 170.18 cm) ea MDM: 21:26 Patient medically screened. [facility] 21:59 Data reviewed: vital signs, nurses notes, radiologic studies, plain films. [facility] 01/21 21:20 Order name: XRAY Shoulder LEFT 2 view ea 01/21 21:20 Order name: XRAY Clavicle LEFT ea 01/21 21:57 Order name: Ice pack; Complete Time: 22:00 [facility] 01/21 22:18 Order name: Shoulder Immobilizer; Complete Time: 22:33 [facility] Administered Medications: 21:40 Drug: morphine 2 mg Route: IVP; Site: right antecubital; ea 22:15 Follow up: Response: No adverse reaction; Pain is decreased ea 21:40 Drug: Zofran 4 mg Route: IVP; Site: right antecubital; ea 22:15 Follow up: Response: No adverse reaction ea 22:27 Not Given (Duplicate Order): TORadol 60 mg IM once ea 22:27 Drug: TORadol 30 mg Route: IVP; Site: right antecubital; ea 23:08 Follow up: Response: No adverse reaction ea 22:28 Drug: [place] 10 mg-325 mg 1 tabs Route: PO; ea 23:08 Follow up: Response: No adverse reaction ea 22:34 Drug: Dilaudid 1 mg Route: IVP; Site: right antecubital; ea 23:09 Follow up: Response: No adverse reaction; Pain is decreased ea 22:34 Drug: Zofran 4 mg Route: IVP; Site: right antecubital; ea 23:09 Follow up: Response: No adverse reaction ea Disposition: 01/21/18 22:19 Discharged to Home. Impression: Fall due to bumping against object, 2-part fracture of surgical neck of humerus. - Condition is Stable. - Discharge Instructions: Fall Prevention in the Home, Humerus Fracture Treated With Immobilization, Shoulder Pain, Humerus Fracture Treated With Immobilization, [id number], Shoulder Pain, Xymk-[id number], Fall Prevention in the Home, [id number]. - Prescriptions for Tylenol- Codeine #3 300-30 mg Oral Tablet - take 2 tablet by ORAL route every 6 hours As needed; 30 tablet. Motrin IB 200 mg Oral Tablet - take 2 tablet by ORAL route every 6 hours As needed as needed with food; 30 tablet. - Medication Reconciliation Form, Thank You Letter, Antibiotic Education, Prescription Opioid Use form. - Follow up: Private Physician; When: 2 - 3 days; Reason: Recheck today's complaints, Continuance of care, Re-evaluation by your physician. Follow up: Thomas Talamantes MD; When: 2 - 3 days; Reason: Recheck today's complaints, Continuance of care, Re-evaluation by your physician. - Problem is new. - Symptoms have improved. Signatures: Dispatcher [employer] EDAshutosh Manley MD MD cha Antunez, Elena, RN RN ea Corrections: (The following items were deleted from the chart) 22:19 22:19 01/21/2018 22:19 Discharged to Home. Impression: Fall due to bumping against lakshmi object; 2-part fracture of surgical neck of humerus. Condition is Stable. Forms are Medication Reconciliation Form, Thank You Letter, Antibiotic Education, Prescription Opioid Use. Follow up: Private Physician; When: 2 - 3 days; Reason: Recheck today's complaints, Continuance of care, Re-evaluation by your physician. Problem is new. Symptoms have improved. [facility] 23:10 22:19 01/21/2018 22:19 Discharged to Home. Impression: Fall due to bumping against ea object; 2-part fracture of surgical neck of humerus. Condition is Stable. Forms are Medication Reconciliation Form, Thank You Letter, Antibiotic Education, Prescription Opioid Use. Follow up: Private Physician; When: 2 - 3 days; Reason: Recheck today's complaints, Continuance of care, Re-evaluation by your physician. Follow up: Thomas Talamantes; When: 2 - 3 days; Reason: Recheck today's complaints, Continuance of care, Re-evaluation by your physician. Problem is new. Symptoms have improved. lakshmi
--- NOTE | 2018-01-21 22:19 | ER ---
Nurse's Notes [facility] Name: Mary Goddard Age: 62 yrs Sex: Female : 1955 Arrival Date: 01/21/2018 Time: 21:05 Bed 19 Private MD: Diagnosis: Fall due to bumping against object;2-part fracture of surgical neck of humerus Presentation: 01/21 21:07 Presenting complaint: EMS states: Pt was fishing with family slipped and fell onto left ea side. Pt complaining of left shoulder pain. Transition of care: patient was not received from another setting of care. Onset of symptoms was January 21, 2018. Risk Assessment: Do you want to hurt yourself or someone else? Patient reports no desire to harm self or others. Initial Sepsis Screen: Does the patient meet any 2 criteria? No. Patient's initial sepsis screen is negative. Does the patient have a suspected source of infection? No. Patient's initial sepsis screen is negative. Care prior to arrival: None. 21:07 Method Of Arrival: EMS: [facility] ea 21:07 Acuity: MIKALA 3 ea Triage Assessment: 21:20 General: Appears uncomfortable, Behavior is restless. Pain: Complains of pain in left ea clavicle and anterior aspect of left shoulder Pain currently is 10 out of 10 on a pain scale. Quality of pain is described as aching, Pain began 30 min ago. Is continuous. Neuro: Level of Consciousness is awake, alert, obeys commands, Oriented to person, place, time, situation. Cardiovascular: Patient's skin is warm and dry. Respiratory: Airway is patent Respiratory effort is even, unlabored, Respiratory pattern is regular, symmetrical, Breath sounds are clear bilaterally. GI: No signs and/or symptoms were reported involving the gastrointestinal system. Derm: Skin is pink, warm \T\ dry. Musculoskeletal: Reports pain in left clavicle and anterior aspect of left shoulder. Historical: - Allergies: 21:18 Penicillins; ea 21:18 Sulfa (Sulfonamide Antibiotics); ea 21:18 Versed; ea 21:18 Tizanidine; ea - Home Meds: 21:18 Requip Oral [Active]; ea 21:43 Protonix Oral [Active]; Lyrica oral oral [Active]; Zoloft Oral [Active]; ea - PMHx: 21:43 Depression; ea - Immunization history:: Adult Immunizations up to date. - Social history:: Smoking status: Patient/guardian denies using tobacco. - Ebola Screening: : No symptoms or risks identified at this time. - Family history:: not pertinent. Screenin:20 Abuse screen: Denies threats or abuse. Nutritional screening: No deficits noted. ea Tuberculosis screening: No symptoms or risk factors identified. Fall Risk Fall in past 12 months (25 points). Assessment: 21:41 Reassessment: Patient and/or family updated on plan of care and expected duration. Pain ea level reassessed. Patient is alert, oriented x 3, equal unlabored respirations, skin warm/dry/pink. X ray at bedside. 23:07 Reassessment: Patient and/or family updated on plan of care and expected duration. Pain ea level reassessed. Patient is alert, oriented x 3, equal unlabored respirations, skin warm/dry/pink. Discharge instruction given to patient. Patient states symptoms have improved. Vital Signs: 21:22 BP 129 / 91; Pulse 60; Resp 20; Temp 98(O); Pulse Ox 98% on R/A; Weight 81.65 kg; ea Height 5 ft. 7 in. (170.18 cm); Pain 10/10; 22:58 BP 130 / 62; Pulse 62; Resp 18; Pulse Ox 99% ; Pain 0/10; ea 21:22 Body Mass Index 28.19 (81.65 kg, 170.18 cm) ea ED Course: 21:05 Patient arrived in ED. am2 21:06 Melba Garcia, RN is Primary Nurse. ea 21:08 Triage completed. ea 21:22 Arm band placed on right wrist. ea 21:23 Patient has correct armband on for positive identification. Bed in low position. Call ea light in reach. Side rails up X2. 21:26 Ashutosh Del Rosario MD is Attending Physician. lakshmi 21:40 Inserted saline lock: 22 gauge in left antecubital area, using aseptic technique. ea 21:50 XRAY Shoulder LEFT 2 view In Process Unspecified. EDMS 21:50 XRAY Clavicle LEFT In Process Unspecified. EDMS 22:19 Thomas Talamantes MD is Referral Physician. lakshmi 23:08 No provider procedures requiring assistance completed. IV discontinued, intact, ea bleeding controlled, No redness/swelling at site. Pressure dressing applied. Administered Medications: 21:40 Drug: morphine 2 mg Route: IVP; Site: right antecubital; ea 22:15 Follow up: Response: No adverse reaction; Pain is decreased ea 21:40 Drug: Zofran 4 mg Route: IVP; Site: right antecubital; ea 22:15 Follow up: Response: No adverse reaction ea 22:27 Not Given (Duplicate Order): TORadol 60 mg IM once ea 22:27 Drug: TORadol 30 mg Route: IVP; Site: right antecubital; ea 23:08 Follow up: Response: No adverse reaction ea 22:28 Drug: [place] 10 mg-325 mg 1 tabs Route: PO; ea 23:08 Follow up: Response: No adverse reaction ea 22:34 Drug: Dilaudid 1 mg Route: IVP; Site: right antecubital; ea 23:09 Follow up: Response: No adverse reaction; Pain is decreased ea 22:34 Drug: Zofran 4 mg Route: IVP; Site: right antecubital; ea 23:09 Follow up: Response: No adverse reaction ea Outcome: 22:19 Discharge ordered by . lakshmi 23:08 Discharged to home ambulatory, with family. ea 23:08 Condition: improved 23:08 Discharge instructions given to patient, Instructed on discharge instructions, follow up and referral plans. medication usage, Demonstrated understanding of instructions, follow-up care, medications, Prescriptions given X 1. 23:10 Patient left the ED. ea Signatures: Dispatcher [employer] Ashutosh Taveras MD MD cha Moreno, Amanda am2 Antunez, Elena RN RN dominga
[2018-01-21] MEDS ORDERED: KETOROLAC 30 MG/ML INJ ONE (22:30)
[2018-01-21] MEDS ORDERED: HYDROCODONE/APAP 10/325 TAB ONE (22:30)
[2018-01-21] MEDS ORDERED: HYDROMORPHONE HCL 0.5 MG/0.5 ML INJ ONE (22:36)
--- NOTE | 2018-01-22 06:33 | RAD REPORT ---
EXAM DESCRIPTION: RAD - Clavicle Left - 01/21/2018 9:51 pm CLINICAL HISTORY: Fall, shoulder and arm pain COMPARISON: None. FINDINGS: No fracture is identified and AC joint or SC joint dislocation. Mild AC joint degenerative changes are present with no spurring. Acromial humeral joint space is norm al. Proximal humerus findings are separately detailed. IMPRESSION: AC joint degenerative change without clavicle fracture.
--- NOTE | 2018-01-22 06:36 | RAD REPORT ---
EXAM DESCRIPTION: RAD - Shoulder Left 2 View - 01/21/2018 9:51 pm CLINICAL HISTORY: Fall, shoulder pain COMPARISON: None. TECHNIQUE: Internal and external rotation views of the left shoulder were obtained. FINDINGS: An oblique fracture traverses the surgical neck and extends into the metaphyseal region of the proximal left humerus. No significant distraction or angulation deformity. There is minimal impa ction. No pathologic bone process. No dislocation. AC joint degenerative change present without spurring. Acromial humeral joint space is normal. No rib or parenchymal abnormality of the upper chest. IMPRESSION: Proximal left humerus fracture without significant distraction or angulation deformity.
== END 2018-01-21 23:10 | disposition home or self-care (01) ==
LOC: ER 21:00
DX: S42.222A 2-part displaced fracture of surgical neck of left humerus, initial encounter for closed fracture (principal); X58.XXXA Exposure to other specified factors, initial encounter; Y93.9 Activity, unspecified; Y92.89 Other specified places as the place of occurrence of the external cause; F32.9 Major depressive disorder, single episode, unspecified; Z88.0 Allergy status to penicillin; Z88.2 Allergy status to sulfonamides; Z88.8 Allergy status to other drugs, medicaments and biological substances
CPT/HCPCS: 96374; 96375; 99284; J1170; J2405